=== PATIENT | male | born 2000 | race Caucasian/White ===

== ENCOUNTER 2021-10-17 09:21 | Day surgery (SDC) | payer BC, OTHER ==
[2021-10-12 15:30] VITALS: BMI 29.1
[~2021-10-17 09:21] MED LIST: CHLORHEXIDINE GLUCONATE 4% CLEANSER FOR DECOLONIZATION TP SCH; MUPIROCIN 2% TOPICAL OINTMENT FOR DECOLONIZATION NS SCH
[2021-10-17] MEDS ORDERED: BUPIVACAINE HCL/EPINEPHRINE/PF 30 ML VIAL IJ ONE (11:09)
[2021-10-17] MEDS ORDERED: MIDAZOLAM HCL 2 MG/2 ML SINGLE DOSE VIAL ONE (11:19)
[2021-10-17] MEDS ORDERED: BUPIVACAINE LIPOSOME/PF (EXPAREL) 266 MG/20 ML VIAL ONE (11:20)
[2021-10-17] MEDS ORDERED: BUPIVACAINE HCL/PF 0.5% (5MG/ML) 10 ML VIAL ONE (11:20)
[2021-10-17] MEDS ORDERED: FENTANYL CITRATE/PF 50 MCG/ML VIAL ONE (11:21)
[2021-10-17] MEDS ORDERED: PROPOFOL 20 ML ONE (11:45)
[2021-10-17] MEDS ORDERED: ONDANSETRON 4 MG/2 ML VIAL ONE (12:24)
[2021-10-17] MEDS ORDERED: DEXAMETHASONE SOD PHOSPHATE 4 MG/1 ML VIAL ONE (12:24)
[2021-10-17] MEDS ORDERED: ceFAZolin SODIUM 1 GM VIAL ONE (12:24)
[2021-10-17] MEDS ORDERED: GLYCOPYRROLATE 0.2 MG/1 ML VIAL ONE (12:24)
[2021-10-17] MEDS ORDERED: LIDOCAINE HCL/PF 2% SDV 5ML VIAL ONE (12:24)
[2021-10-17] MEDS ORDERED: SEVOFLURANE 250 ML BTL ONE (12:39)
[2021-10-17] MEDS ORDERED: oxyCODONE HCL 5 MG TABLET PO PRN ×2 (12:44)
[2021-10-17] MEDS ORDERED: ONDANSETRON 4 MG/2 ML VIAL IVPUSH PRN (12:44)
[2021-10-17] MEDS ORDERED: LACTATED RINGERS SOLUTION 1,000 ML IV SCH (12:45)
[2021-10-17 16:35] VITALS: BP 136/66; PULSE 95; RESP 16
[2021-10-17 16:38] VITALS: TEMP 97
== END 2021-10-17 16:26 | disposition home or self-care (01) ==
LOC: FASU 09:21
PROVIDERS: ATTEND Orthopaedic Surgery
PROC: 01NH0ZZ Release Peroneal Nerve, Open Approach (ICD-10-PCS; 2021-10-17)
PROC: 0SQD4ZZ Repair Left Knee Joint, Percutaneous Endoscopic Approach (ICD-10-PCS; principal; 2021-10-17 12:30)
DX: S83.282A Other tear of lateral meniscus, current injury, left knee, initial encounter (principal); S83.62XA Sprain of the superior tibiofibular joint and ligament, left knee, initial encounter; S84.12XA Injury of peroneal nerve at lower leg level, left leg, initial encounter; X58.XXXA Exposure to other specified factors, initial encounter; Y93.9 Activity, unspecified; Y92.9 Unspecified place or not applicable
CPT/HCPCS: 27829; 29882; 64708; C1713; 73560-TC-RT-FY; 88304-TC; 94760